=== PATIENT | male | born 1935 | race Caucasian/White ===

== ENCOUNTER → 2018-03-26 08:14 | Outpatient (CLI) | payer MEDICARE, OTHER, SELFPAY ==
--- NOTE | 2018-03-26 | DI.ECHO.S_ITS ---
[facility] +---------+ : : [address] : [place] : : : : [id number] : : : : Phone: [phone]---------+ Echocardiogram Report + + :Name: ARGELIA CUTLER Study Date: 03/26/2018 Height: 70 in : :[facility] Weight: 185 lb: : Gender: Male BSA: 2.0 m2 : :: 1935 Age: 83 yrs BP: 80/20 mmHg: :Reason For Study: SOB : :Ordering Physician: Artur : :Ken Performed By: Maine Mcneil : :Referring: Arabella Garvin : + + Interpretation Summary The patient was in atrial fibrillation with heart rates between 101-118 bpm during the exam. The left ventricle is normal in size. The ejection fraction is estimated to be 25-30%. Left ventricular function has significantly worsened compared to the previous exam. There is moderate to severe global hypokinesis of the left ventricle. The right ventricle is grossly normal size. Right ventricular systolic function is mildly reduced. There is mild to moderate mitral regurgitation. Compared to the prior echo study, there has been an increase in the severity of mitral regurgitation. The aortic valve is moderately calcified. Leaflet mobility is severely reduced. Severity ratio is 0.25. Aortic cusp separation about 0.6 cm. The peak aortic velocity is 2.6 m/sec. The peak aortic velocity on the previous exam was 1.6 m/sec. The aortic valve mean gradient is 15 mmHg. The calculated aortic valve area is 1.0 cm2. Some of the diminished mobility likely due to low cardiac output. There is mild tricuspid regurgitation. Compared to the prior echo exam, there has been an increase in TR severity. Right ventricular systolic pressure is estimated to be 29 mmHg plus the clinically estimated CVP which cannot be estimated on this exam. Procedure: A two-dimensional transthoracic echocardiogram with color flow and Doppler was performed. The study quality was technically difficult. Comparison is made with the echocardiogram of 03-27-15. A contrast injection of Definity was performed to improve assessment of LV function. The patient was in atrial fibrillation with heart rates between 101-118 bpm during the exam. Left Ventricle: The left ventricle is normal in size. There is normal left ventricular wall thickness. There is no thrombus. The ejection fraction is estimated to be 25-30%. Left ventricular function has significantly worsened compared to the previous exam. There is moderate to severe global hypokinesis of the left ventricle. Diastolic function could not be accurately assessed due to atrial fibrillation. Right Ventricle: The right ventricle is grossly normal size. Right ventricular systolic function is mildly reduced. Atria: The left atrium is severely dilated. The left atrium has significantly increased in size since the prior echo exam. The right atrium is mildly dilated. PFO was noted on prior exams, but no shunt was identified during today's echocardiogram. Mitral Valve: The mitral valve leaflets appear mildly thickened, but open well. There is mild mitral annular calcification. The mitral valve chordae are thickened and/or calcified. There is mild to moderate mitral regurgitation. Compared to the prior echo study, there has been an increase in the severity of mitral regurgitation. Aortic Valve: The aortic valve is trileaflet. The aortic valve is moderately calcified. Leaflet mobility is severely reduced. The calculated aortic valve area is 1.0 cm2. The peak aortic velocity is 2.6 m/sec. The peak aortic velocity on the previous exam was 1.6 m/sec. The aortic valve mean gradient is 15 mmHg. Severity ratio is 0.25. Aortic cusp separation about 0.6 cm. No aortic regurgitation is present. Tricuspid Valve: The tricuspid valve leaflets are thin and pliable. There is mild tricuspid regurgitation. Right ventricular systolic pressure is estimated to be 29 mmHg plus the clinically estimated CVP which cannot be estimated on this exam. Compared to the prior echo exam, there has been an increase in TR severity. Pulmonic Valve: The pulmonic valve is not well visualized. Great Vessels: The aortic root is normal size. There is aortic root sclerosis/calcification. The dimensions of the ascending aorta are normal. The inferior vena cava was not visualized. Pericardium/ Pleura There is no pericardial effusion. There is no pleural effusion. MMode/2D Measurements & Calculations LVIDd: 5.5 cm LVOT diam: 2.3 cm LVIDs: 4.6 cm Ao root diam: 3.4 cm FS: 16.4 % Aortic Jxn: 2.6 cm EPSS: 1.7 cm asc Aorta Diam: 3.5 cm IVSd: 1.3 cm Ao Arch Diam (Prox Trans): 2.9 cm LVPWd: 0.94 cm LV cage. diameter/BSA (cm/m^2): 2.7 LV sys. diameter/BSA (cm/m^2): 2.3 LA dimension: 5.9 cm RA long axis: 6.0 cm LA A2 area: 37.3 cm2 RA area: 22.3 cm2 LA A4 area: 30.3 cm2 RA vol: 69.8 ml LA length (vol): 6.2 cm RA : 34.6 ml/m2 LA vol: 154.5 ml RVDd major: 5.8 cm LA vol index: 76.5 ml/m2 RVD1 (basal): 3.4 cm RVD2 (mid): 3.1 cm AMMON (plan): 0.53 cm2 Doppler Measurements & Calculations Ao V2 max: 258.3 cm/sec LVOT Max Jurgen: 60.8 cm/sec Ao V2 mean: 178.0 cm/sec LV V1 max P.5 mmHg Ao max P.7 mmHg LV V1 VTI: 13.2 cm Ao mean P.8 mmHg AMMON(I,D): 1.1 cm2 Ao V2 VTI: 52.3 cm AMMON(V,D): 1.00 cm2 sev ratio: 0.25 AMMON indexed to BSA (cm^2/m^2): 0.53 MV P1/2t: 69.3 msec TR max jurgen: 270.0 cm/sec MVA(VTI): 2.7 cm2 TR max P.1 mmHg PA V2 max: 72.8 cm/sec PA V2 mean: 44.9 cm/sec PA mean P.96 mmHg PA Accel Time: 0.11 sec MV V2 mean: 51.6 cm/sec MV P1/2t max jurgen: 112.9 cm/sec MV mean P.5 mmHg MVA(P1/2t): 3.2 cm2 MV V2 VTI: 20.9 cm MR flow rate: 52.4 cm3/sec MR PISA radius: 0.47 cm Reading Physician:UZAIR
== END ==
PROVIDERS: Family Provider Specialist; PCP Family Medicine; Visit Provider Internal Medicine Cardiovascular Disease
DX: I08.1 Rheumatic disorders of both mitral and tricuspid valves (principal); R06.02 Shortness of breath
CPT/HCPCS: 93306; Q9957

== ENCOUNTER → 2018-04-09 14:21 | Outpatient (CLI) | payer MEDICARE, OTHER, SELFPAY ==
--- NOTE | 2018-04-12 16:45 | PM.PFT.1 ---
Pulmonary Function Test Referral & Results Date Patient Seen: 04/09/18 Requesting provider: Artur Rogers Indication: Amiodarone therapy Results: The spirometry demonstrates an FVC of 1.81 L which is 40% of predicted. The FEV1 was measured at 1.26 L which is 40% of predicted. The FEV1/FVC ratio was 69 which is 97% of predicted. Following the administration of bronchodilator there was no appreciable change. Lung volumes show an SVC of 1.92 L which is 45% of predicted. The diffusing capacity was measured at 13.33 which is 43% of predicted. No hemoglobin value was provided, so no correction for potential anemia could be made, if appropriate. The maximum voluntary ventilation was reduced Interpretation: This study demonstrates moderately severe obstructive lung disease without evidence of benefit following bronchodilator There is also moderately severe restrictive lung disease present Was also moderately severe reduction in diffusing capacity suggesting significant disease at the capillary alveolar level. This is consistent with a diagnosis of COPD Clinical correlation suggested
== END ==
PROVIDERS: Visit Provider Internal Medicine Cardiovascular Disease
DX: R06.02 Shortness of breath (principal); Z79.899 Other long term (current) drug therapy
CPT/HCPCS: 94010; 94060; 94726; 94729

== ENCOUNTER → 2018-06-18 12:27 | Outpatient (CLI) | payer MEDICARE, OTHER, SELFPAY ==
--- NOTE | 2018-06-18 12:29 | DI.RAD.S_ITS ---
PROCEDURE: XR TIBIA FIBULA RT 2V INDICATIONS: Left knee and calf pain TECHNIQUE: 2 views of the tibia and fibula were acquired. COMPARISON: [facility], CR, TIB/FIB 2V RIGHT, 05/05/2010, 19:47. FINDINGS: Bones: Cortical irregularity involving proximal to mid fibular shaft is seen suggestive of subacute to old healed fibular shaft fracture. No gross acute fracture or dislocation is seen. [id number] ankle and knee joint osteoarthritis is seen. Soft tissues: Vascular calcifications are noted in posterior aspect of left knee. IMPRESSION: Suggestion of subacute to old fibular shaft fracture. No acute fracture or dislocation. Ankle and left knee joint osteoarthritis. Dictated by: Gareth Rodas M.D. on 06/18/2018 at 14:13 Approved by: Gareth Rodas M.D. on 06/18/2018 at 14:18
--- NOTE | 2018-06-18 12:29 | DI.RAD.S_ITS ---
PROCEDURE: XR KNEE LT 3V INDICATIONS: Left knee and calf pain TECHNIQUE: 3 views of the knee were acquired. COMPARISON: None. FINDINGS: Bones: [id number] tricompartment osteoarthritis is noted. No acute fractures or dislocations. Subacute to chronic appearing deformity involving proximal left fibular shaft is seen. No suspicious bony lesions. Soft tissues: Small to moderate suprapatellar joint effusion is seen.. Vascular calcification is noted in posterior left knee. IMPRESSION: Small to moderate amount of joint effusion. Other moderate tricompartment osteoarthritis. No gross acute fracture or dislocation. Suggestion of subacute to chronic proximal to mid fibular shaft fracture. Dictated by: Gareth Rodas M.D. on 06/18/2018 at 14:18 Approved by: Gareth Rdoas M.D. on 06/18/2018 at 14:19
== END ==
PROVIDERS: Family Provider Specialist; PCP Family Medicine; Visit Provider Physician Assistant
DX: M25.562 Pain in left knee (principal); M79.662 Pain in left lower leg; M19.072 Primary osteoarthritis, left ankle and foot; M17.12 Unilateral primary osteoarthritis, left knee; M25.462 Effusion, left knee
CPT/HCPCS: 73562; 73590

== ENCOUNTER → 2018-07-14 08:33 | Outpatient (CLI) | payer MEDICARE, OTHER, SELFPAY ==
[2018-07-14 09:30] LABS: Hemoglobin A1C% w Est Avg Glu 6.2 % (4.0-6.0)
[2018-07-14 09:38] LABS: Cholesterol 127 mg/dL (140-199); HDL Cholesterol 32 mg/dL (40-60); LDL Cholesterol Calculated 74 mg/dL (<100); Triglycerides 103 mg/dL (35-150)
== END ==
PROVIDERS: Family Provider Specialist; PCP Family Medicine; Visit Provider Family Medicine
DX: E11.29 Type 2 diabetes mellitus with other diabetic kidney complication (principal); E78.5 Hyperlipidemia, unspecified; I95.9 Hypotension, unspecified
CPT/HCPCS: 80061; 83036

== ENCOUNTER → 2018-09-06 12:44 | Outpatient (CLI) | payer MEDICARE, OTHER, SELFPAY ==
--- NOTE | 2018-09-10 15:47 | PM.PFT.1 ---
Pulmonary Function Test Referral & Results Date Patient Seen: 09/06/18 Requesting provider: Artur Rogers Indication: Dyspnea shortness of breath Results: The spirometry demonstrates an FVC of 1.69 L which is 45% of predicted. The FEV1 was measured at 1.15 L which is 44% of predicted. The FEV1/FVC ratio was 68 which is 95% of predicted. Following the administration of bronchodilator there was no appreciable change. Lung volumes show an SVC of 1.74 L which is 41% of predicted. The diffusing capacity was measured at 13.11 which is 42% of predicted. No hemoglobin value was provided, so no correction for potential anemia could be made, if appropriate. The maximum voluntary ventilation was reduced Interpretation: This study demonstrates severe obstructive lung disease based on significant reduction in FEV1. There is no evidence of benefit following bronchodilator There is also severe restrictive lung disease present based on reduction SVC There is also a severe reduction in diffusing capacity suggesting significant disease at the capillary alveolar level. Compared to PFTs performed in March 2018, current study is essentially unchanged. There might be slight decline in FEV1.
== END ==
PROVIDERS: Family Provider Specialist; PCP Family Medicine; Visit Provider Internal Medicine Cardiovascular Disease
DX: R06.02 Shortness of breath (principal); Z79.899 Other long term (current) drug therapy
CPT/HCPCS: 94060; 94726; 94729

== ENCOUNTER 2018-12-15 12:43 | Emergency (ER) | payer MEDICARE, OTHER, SELFPAY ==
[2018-12-15 13:13] LABS: Add Manual Diff / Slide Review NO; Basophils Absolute Auto 100 /uL (0-100); Basophils Percent Auto 0.7 % (0-2); Eosinophils Absolute Auto 200 /uL (0-450); Eosinophils Percent Auto 1.8 % (2-4); Hemoglobin 14.4 g/dL (13.5-17.5); Lymphocytes Absolute Auto 1600 /uL (1100-4500); Lymphocytes Percent Auto 18.1 % (25-40); Mean Corpuscular HGB Conc 32.1 % (30-36); Mean Corpuscular Hemoglobin 30.3 PG (26-34); Mean Corpuscular Volume 94.5 fL (80-100); Monocytes Absolute Auto 600 /uL (0-900); Monocytes Percent Auto 7.2 % (3-14); Neutrophils Absolute Auto 6400 /uL (1500-7000); Neutrophils Percent Auto 72.2 % (50-75); Platelet Count 162 X10^3/uL (150-400); Red Blood Cell Count 4.77 X10^6/uL (4.5-5.9); Red Cell Distribution Width 16.3 % (11.6-14.8); White Blood Cell Count 8.8 X10^3/uL (4.5-11.0)
[2018-12-15 13:19] LABS: INR 2.6 (0.9-1.3); Prothrombin Time 30.9 SECONDS (10.1-12.7)
--- NOTE | 2018-12-15 13:19 | DI.CT.S_ITS ---
PROCEDURE: CT HEAD/BRAIN WO CON INDICATIONS: fall on coumadin TECHNIQUE: Noncontrast 4.5 mm thick angled axial sections acquired from the foramen magnum to the vertex, with coronal and sagittal reformats. For radiation dose reduction, the following was used: automated exposure control, adjustment of mA and/or kV according to patient size. COMPARISON: None. FINDINGS: Image quality: Excellent. CSF spaces: Basal cisterns are patent. No extra-axial fluid collections. The ventricles are symmetric in size and shape. Brain: No intracranial bleeds or masses. There is mild cerebral volume loss for age, with resultant ventricular and sulcal prominence. There are mild periventricular and deep white matter chronic small vessel ischemic changes. There is intracranial internal carotid artery atherosclerosis. Skull and face: Calvarium and visualized facial bones appear intact, without suspicious lesions. Sinuses: There is a large mucous retention cyst or polyp in the right frontal sinus. The mastoids are clear. IMPRESSION: 1. No acute intracranial abnormalities. No intracranial bleed. 2. Cerebral volume loss and chronic microvascular ischemic changes. 3. A large mucous retention cyst or polyp in the right frontal sinus. Dictated by: Tin Arellano M.D. on 12/15/2018 at 13:39 Approved by: Tin Arellano M.D. on 12/15/2018 at 13:42
[2018-12-15] MEDS: SODIUM CHLORIDE 0.9% 1,000 ML 150 ML IV (13:21)
[2018-12-15 13:22] LABS: PTT Partial Thromboplastin Tim 41 SECONDS (26.4-36.2)
[2018-12-15 13:25] LABS: Alanine Aminotransferase 9 IU/L (21-72); Albumin 4.4 g/dL (3.5-5.0); Albumin Globulin Ratio 1.4 (1.0-2.8); Alkaline Phosphatase 78 U/L (38-126); Aspartate Aminotransferase 26 IU/L (17-59); BUN Creatinine Ratio 6.8 (6-22); Bilirubin Total 0.8 mg/dL (0.2-1.3); Blood Urea Nitrogen 42 mg/dL (9-20); Calcium 9.3 mg/dL (8.4-10.2); Carbon Dioxide 24 mmol/L (22-32); Chloride 99 mmol/L (98-107); Creatine Kinase 51 U/L (55-170); Estimated Glomerular Filt Rate 8.7 mL/min (>60); Globulin 3.1 g/dL (1.7-4.1); Glucose 156 mg/dL (80-110); HEMOLYSIS 35 (0-50); Potassium 4.7 mmol/L (3.4-5.1); Sodium 142 mmol/L (137-145); Total Protein 7.5 g/dL (6.3-8.2)
[2018-12-15 13:26] VITALS: BP 100/72; PULSE 113; RESP 28; O2SAT 96
[2018-12-15 13:37] LABS: Troponin I < 0.012 ng/mL (0.01-0.034)
--- NOTE | 2018-12-15 13:44 | ED_ITS ---
HPI - Trauma General Chief Complaint: Trauma Stated Complaint: snycope Time Seen by Provider: 12/15/18 12:50 Source: patient and EMS Mode of arrival: EMS Limitations: no limitations History of Present Illness HPI narrative: Patient is a 83-year-old male on dialysis with atrial fibrillation on Coumadin presenting with syncopal episode a ground level fall. He states he has been getting all lightheaded says his blood pressure has been to low he stopped all of his blood pressure medications, due to how he was feeli ng. did not guide him through stopping his medications. He was lightheaded and dizzy today and he fell backwards hitting his head today no loss of consciousness. No neck pain no other injury except for right hand skin tear. He has no hip or pelvis pain. No nausea he still feels a little dizzy and lightheaded. He is followed by Dr. Goyal nephrology, he has not missed dialysis in fact he had yesterday and is due again tomorrow. MD complaint: fall Related Data Home Medications Medication Instructions Recorded Confirmed cholecalciferol (vitamin D3) 2,000 unit PO DAILY #0 11/15/10 12/15/18 [Vitamin D3] aspirin 81 mg tablet,delayed 81 mg PO DAILY 09/13/18 12/15/18 release insulin aspart U- 100 100 unit/mL See Rx Instructions SUBCUT SLIDE 09/13/18 12/15/18 subcutaneous solution day vitamin B complex tablet 1 tab PO DAILY 09/13/18 12/15/18 Alcohol Prep Pads 1 pad TOPICAL DIRECTED 12/15/18 12/15/18 B complex-vitamin C-folic acid 1 tab PO DAILY 12/15/18 12/15/18 [Pita-Rene] Harrison 1 ea MISCELLANEOUS DIRECTED 12/15/18 12/15/18 Prevalite 4 gm PO Q6HP PRN 12/15/18 12/15/18 Pita-Rene 1 tab PO DAILY 12/15/18 12/15/18 atorvastatin [Lipitor] 40 mg PO BEDTIME 12/15/18 12/15/18 colchicine 0.6 mg PO BID PRN 12/15/18 12/15/18 levothyroxine 224 mcg PO DAILY 12/15/18 12/15/18 nitroglycerin [Nitrostat] 0.4 mg SUBLINGUAL SEE INSTRUCTIONS 12/15/18 12/15/18 PRN omeprazole 20 mg PO DAILY 12/15/18 12/15/18 Previous Rx's Medication Instructions Recorded calcium acetate 2 tab PO WITH MEALS #180 tab 04/14/16 Lantus U-100 Insulin 8 unit SQ QPM #3 vial 04/23/16 clotrimazole-betamethasone 1 caitlyn TOPICAL BID #30 gm 06/23/17 [Lotrisone] [LANCETS] #100 each 05/31/18 warfarin 4 mg tablet 4 mg PO DAILY #90 tab 09/15/18 Allergies Allergy/AdvReac Type Severity Reaction Status Date / Time procaine [PROCAINE] Allergy Severe shock Verified 09/13/18 12:02 grass pollen-perennial rye, Allergy Intermediate ITCHY Verified 09/13/18 12:02 standar EYES/SNEEZE [GRASS POLL-PERENNIAL RYE,STD] Iodine and Iodide Containing Allergy Intermediate VOMITING Verified 09/13/18 12:02 Produc AND SHOCK [IODINE AND IODIDE CONTAINING PRODUC] lidocaine [LIDOCAINE] Allergy Intermediate HYPOTENSIVE Verified 09/13/18 12:02 trandolapril [TRANDOLAPRIL] Allergy Intermediate COUGH Verified 09/13/18 12:02 novacaine Allergy Unknown Uncoded 06/18/18 13:21 seafoood Allergy Unknown VOMITING Uncoded 06/18/18 13:21 AND SHOCK Review of Systems Review of Systems ROS Unobtainable: All systems reviewed & are unremarkable except as noted in HPI and below Constitutional Denies chills, Denies fever(s), Denies lethargy and Denies weakness Eyes Denies change in vision, Denies eye discharge, Denies irritation and Denies loss of vision ENT Ears, Nose, Mouth, and Throat: Denies change in voice, Denies neck pain and Denies sore throat Cardiovascular Denies chest pain, Reports syncope, Reports irregular heart rhythm (atrial fibrillation), Reports lightheadedness, Denies dyspnea and Denies dyspnea on exertion Respiratory Denies cough, Denies dyspnea, Denies dyspnea on exertion and Denies wheezing Gastrointestinal Gastrointestinal: Denies abdominal pain, Denies change in bowel habits, Denies diarrhea, Denies nausea and Denies vomiting Genitourinary Denies hematuria, Denies flank pain, Denies urinary incontinence and Denies uri nary urgency Musculoskeletal Denies neck pain Integumentary/Breasts Denies pruritus, Denies erythema, Denies rash and Denies wounds Neurologic Reports syncope, Denies loss of vision and Denies weakness Allergic/Immunologic Denies wheezing [facility] Medical History Anemia (Chronic Unknown) Atrial fibrillation (Chronic Unknown) BPH (benign prostatic hyperplasia) (Chronic Unknown) Carotid artery disease (Chronic Unknown) Diabetes (Chronic Unknown) Elevated PSA (Chronic Unknown) GERD (gastroesophageal reflux disease) (Chronic Unknown) Gout (Chronic Unknown) Hearing loss (Chronic Unknown) Hyperlipemia (Chronic Unknown) Hypertension (Chronic Unknown) Hypothyroidism (Chronic Unknown) Kidney disease (Chronic Unknown) Sleep apnea (Chronic Unknown) Cataracts, bilateral (Resolved Unknown) Myocardial infarction (Resolved Unknown) Surgical History History of carpal tunnel repair History of cataract removal with insertion of prosthetic lens Status post biopsy Status post hernia repair Family History (System 04/13/18 @ 11:51 by Lidia Raymundo) Mother Hypertension Father Emphysema of lung Social History (System 04/13/18 @ 11:51 by Lidia Raymundo) Smoking Status: Former smoker Tobacco: How many years used: 12 second hand exposure: No alcohol intake: never substance use type: does not use Family History Mother Hypertension Father Emphysema of lung Social History Smoking Status: Former smoker Tobacco: How many years used: 12 second hand exposure: No alcohol intake: never substance use type: does not use Exam Initial Vital Signs Initial Vital Signs: Vital Signs Pulse Rate 113 H 12/15/18 13:26 Respiratory Rate 28 H 12/15/18 13:26 Blood Pressure 100/72 12/15/18 13:26 Pulse Oximetry 96 12/15/18 13:26 GENERAL: Alert pleasant well-appearing elderly male and in [no acute] distress. HEENT: Head atraumatic, no abrasion no crepitation no depression,EOMI, pupils reactive, face symmetric, [moist] mucous membranes NECK: Supple no vertebral tenderness no step-off CARDIOVASCULAR: Regular rate and rhythm without murmurs, rubs or gallops. RESPIRATORY: Breath sounds equal bilaterally, no wheezes rales or rhonchi. ABDOMEN: Soft, nontender. Normoactive bowel sounds all 4 quadrants. No guarding or rebound. EXTREMITIES: Normal range of motion, no clubbing or edema. Neurovascularly intact. Pelvis stable NEUROLOGICAL: Alert and oriented x4.Normal gait and speech. Cranial nerves II through XII grossly intact. [employer] strength equal bilaterally able lift both legs up off the gurney and having them drift SKIN: Skin tear noted between thumb and index finger on right hand. No other signs of injury. Course Orders Ordered: ED Orders 12/15/18 12:51 EKG-12 Lead Stat 12/15/18 13:00 Complete Blood Count AUTO DIFF Stat Comprehensive Metabolic Panel Stat Partial Thromboplastin Time Stat Prothrombin Time INR Stat Troponin & CK Cardiac Panel Stat 12/15/18 13:19 CT head/brain wo con Stat 12/15/18 14:26 XR chest 1V Stat Discontinued Medications Digoxin (Lanoxin) 250 mcg IV NOW ONE Stop: 12/15/18 14:45 Last Admin: 12/15/18 15:30 Dose: 250 mcg Sodium Chloride (Normal Saline 0.9%) 1,000 mls @ 150 mls/hr IV CONT ARAVIND Last Admin: 12/15/18 13:21 Dose: 150 mls/hr Vital Signs - 8 hr 12/15/18 13:26 12/15/18 14:30 12/15/18 15:30 Pulse Rate 113 H 123 H 137 H Respiratory Rate 28 H 25 H Blood Pressure 123/83 Blood Pressure [Right Arm] 100/72 97/56 L Pulse Oximetry 96 93 12/15/18 15:37 Pulse Rate 117 H Respiratory Rate Blood Pressure Blood Pressure [Right Arm] 123/83 Pulse Oximetry 95 MDM - Trauma Lab Data Attestation: I reviewed the patient's lab results. Result diagrams: 12/15/18 13:00 12/15/18 13:00 Lab Results 12/15/18 12/15/18 12/15/18 Range/Units 13:00 13:00 13:00 WBC 8.8 (4.5-11.0) X10^3/uL RBC 4.77 (4.5-5.9) X10^6/uL Hgb 14.4 (13.5-17.5) g/dL Hct 45.0 (41-53) % MCV 94.5 (80-100) fL MCH 30.3 (26-34) PG MCHC 32.1 (30-36) % RDW 16.3 H (11.6-14.8) % Plt Count 162 (150-400) X10^3/uL Neut % (Auto) 72.2 (50-75) % Lymph % (Auto) 18.1 L (25-40) % [place] % (Auto) 7.2 (3-14) % Eos % (Auto) 1.8 L (2-4) % Baso % (Auto) 0.7 (0-2) % Neut # (Auto) 6400 (0112-3113) /uL Lymph # (Auto) 1600 (2437-5424) /uL [place] # (Auto) 600 (0-900) /uL Eos # (Auto) 200 (0-450) /uL Baso # (Auto) 100 (0-100) /uL PT 30.9 H (10.1-12.7) SECONDS INR 2.6 H (0.9-1.3) APTT 41 H (26.4-36.2) SECONDS Sodium 142 (137-145) mmol/L Potassium 4.7 (3.4-5.1) mmol/L Chloride 99 (98-107) mmol/L Carbon Dioxide 24 (22-32) mmol/L BUN 42 H (9-20) mg/dL Creatinine 6.20 H (0.66-1.25) mg/dL Estimated GFR 8.7 L (>60) mL/min BUN/Creatinine Ratio 6.8 (6-22) Glucose 156 H (80-110) mg/dL Calcium 9.3 (8.4-10.2) mg/dL Total Bilirubin 0.8 (0.2-1.3) mg/dL AST 26 (17-59) IU/L ALT 9 L (21-72) IU/L Alkaline Phosphatase 78 (38-126) U/L Total Creatine Kinase 51 L (55-170) U/L CK-MB (CK-2) TNP CK-MB (CK-2) Rel Index TNP Troponin I < 0.012 (0.01-0.034) ng/mL Total Protein 7.5 (6.3-8.2) g/dL Albumin 4.4 (3.5-5.0) g/dL Globulin 3.1 (1.7-4.1) g/dL Albumin/Globulin Ratio 1.4 (1.0-2.8) Point of Care Testing Glucose POC 183 Imaging Data Chest x-ray: Radiologist's impression: PROCEDURE: XR CHEST 1V INDICATIONS: syncope. TECHNIQUE: One view of the chest was acquired. COMPARISON: [facility], CHEST 1 VIEW, 12/19/2015, 8:26. [facility], CHEST 1 VIEW, 12/20/2015, 14:21. [facility], CHEST 1 VIEW, 01/18/2016, 10:24. FINDINGS: Surgical changes and devices: None. Lungs and pleura: Lung volumes are small, likely secondary to shallow inspiration. Lungs are clear. No pleural effusions or pneumothorax. Mediastinum: Mediastinal contours appear normal. Heart size is normal. Bones and chest wall: No suspicious bony lesions. Overlying soft tissues appear unremarkable. IMPRESSION: No acute cardiopulmonary disease. Dictated by: Tin Arellano M.D. on 12/15/2018 at 15:02 CT scan - head: Radiologist's impression: PROCEDURE: CT HEAD/BRAIN WO CON INDICATIONS: fall on coumadin TECHNIQUE: Noncontrast 4.5 mm thick angled axial sections acquired from the foramen magnum to the vertex, with coronal and sagittal reformats. For radiation dose reduction, the following was used: automated exposure control, adjustment of mA and/or kV according to patient size. COMPARISON: None. FINDINGS: Image quality: Excellent. CSF spaces: Basal cisterns are patent. No extra-axial fluid collections. The ventricles are symmetric in size and shape. Brain: No intracranial bleeds or masses. There is mild cerebral volume loss for age, with resultant ventricular and sulcal prominence. There are mild periventric ular and deep white matter chronic small vessel ischemic changes. There is intracranial internal carotid artery atherosclerosis. Skull and face: Calvarium and visualized facial bones appear intact, without suspicious lesions. Sinuses: There is a large mucous retention cyst or polyp in the right frontal sinus. The mastoids are clear. IMPRESSION: 1. No acute intracranial abnormalities. No intracranial bleed. 2. Cerebral volume loss and chronic microvascular ischemic changes. 3. A large mucous retention cyst or polyp in the right frontal sinus. Dictated by: Tin Arellano M.D. on 12/15/2018 at 13:39 Approved by: Tin Arellano M.D. on 12/15/2018 at 13:42 ECG Data Attestation: I personally reviewed and interpreted this ECG as follows: Prior ECG tracings: not available for review Interpretation: Atrial fibrillation rate [address] changes or new right bundle branch block MDM Narrative Medical decision making narrative: Patient blood pressure remains low in the 90s to 100s. AFib RVR anywhere from rate 110-130. Patient continues to feel lightheaded. He is followed by Dr. Goyal. The patient needs to be admitted and have blood pressure and heart rate control to help with his pre syncopal episodes. I spoke with , at [facility] who happily except patient. Recommend digoxin for rate control Patient agrees to go to [facility] although it is not his hospital of choice. His daughter brought his CPAP machine to him. Discharge Plan Departure Patient Disposition: [facility] Clinical Impression: Atrial fibrillation Qualifiers: Atrial fibrillation type: chronic Qualified Code(s): I48.2 - Chronic atrial fibrillation Hypotension Qualifiers: Hypotension type: hemodialysis-associated hypotension Qualified Code(s): I95.3 - Hypotension of hemodialysis Discharge Date/Time: 12/15/18 15:55 Interventions: ED Discharge Assessment Last Done: 12/15/18 16:07 Prescriptions: No Action Novolog U-100 Insulin aspart 100 unit/mL solution See Patient Comments subcut SLIDE RF: 0 aspirin [Adult Low Dose Aspirin] 81 mg tablet,delayed release (DR/EC) 81 mg PO DAILY RF: 0 vitamin B complex [B Complex-Vitamin B12] tablet 1 tab PO DAILY RF: 0 cholecalciferol (vitamin D3) [Vitamin D3] 2,000 unit Capsule 2,000 unit PO DAILY Qty: 0 RF: 0 calcium acetate 667 MG capsule 2 tab PO WITH MEALS Qty: 180 RF: 3 Lantus U-100 Insulin 100 UNIT/1 ML solution 8 unit SQ QPM Qty: 3 RF: 3 clotrimazole-betamethasone [Lotrisone] 15 GM cream 1 caitlyn Topical BID Qty: 30 RF: 0 [LANCETS] .Route .MEDSUPPLY Qty: 100 RF: 3 warfarin [Coumadin] 4 mg tablet 4 mg PO DAILY Qty: 90 RF: 1 Alcohol Prep Pads 1 pad topical DIRECTED RF: 0 atorvastatin [Lipitor] 40 MG tablet 40 mg PO BEDTIME RF: 0 Pita-Rene 0.8 mg Tablet 1 tab PO DAILY RF: 0 levothyroxine 112 mcg Tablet 224 mcg PO DAILY RF: 0 Pita-Rene 1 tab PO DAILY RF: 0 nitroglycerin [Nitrostat] 0.4 MG tablet, sublingual 0.4 mg Sublingual SEE INSTRUCTIONS PRN (Reason: Chest Pain) RF: 0 omeprazole 20 MG capsule,delayed release(DR/EC) 20 mg PO DAILY RF: 0 Prevalite 4 GM powder in packet 4 gm PO Q6HP PRN (Reason: Diarrhea) RF: 0 colchicine 0.6 MG capsule 0.6 mg PO BID PRN (Reason: Gout) RF: 0 Harrison 1 ea miscellaneous DIRECTED RF: 0 Referrals: Arabella Garvin DO [Primary Care Provider] -
--- NOTE | 2018-12-15 13:53 | PC.NURSE ---
right hand skin tear cleaned with soap and water, Bactrian applied and band aid. bleeding controlled. right inner thigh abrasion cleaned with soap and water, bacitracian applied and band aid applied. no bleeding at this time.
--- NOTE | 2018-12-15 14:26 | DI.RAD.S_ITS ---
PROCEDURE: XR CHEST 1V INDICATIONS: syncope. TECHNIQUE: One view of the chest was acquired. COMPARISON: [facility], , CHEST 1 VIEW, 12/19/2015, 8:26. [facility], , CHEST 1 VIEW, 12/20/2015, 14:21. [facility], , CHEST 1 VIEW, 01/18/2016, 10:24. FINDINGS: Surgical changes and devices: None. Lungs and pleura: Lung volumes are small, likely secondary to shallow inspiration. Lungs are clear. No pleural effusions or pneumothorax. Mediastinum: Mediastinal contours appear normal. Heart size is normal. Bones and chest wall: No suspicious bony lesions. Overlying soft tissues appear unremarkable. IMPRESSION: No acute cardiopulmonary disease. Dictated by: Tin Arellano M.D. on 12/15/2018 at 15:02 Approved by: Tin Arellano M.D. on 12/15/2018 at 15:03
[2018-12-15 14:30] VITALS: BP 97/56; PULSE 123; RESP 25; O2SAT 93
[2018-12-15 15:30] VITALS: BP 123/83; PULSE 137
[2018-12-15] MEDS: DIGOXIN 500 MCG/2 ML AMPUL 250 MCG IV (15:30)
[2018-12-15 15:37] VITALS: BP 123/83; PULSE 117; O2SAT 95
--- NOTE | 2019-01-25 10:42 | PC.NURSE ---
Per Nakia OCONNELL, IV NS completed on 12/15/2018 at 1607 with 750mL infused
== END 2018-12-15 15:55 | disposition short-term general hospital (02) ==
PROVIDERS: Emergency Provider Emergency Medicine; Family Provider Specialist; PCP Family Medicine; Referring Provider Internal Medicine Cardiovascular Disease
DX: I48.2 Chronic atrial fibrillation (principal); I95.3 Hypotension of hemodialysis; S09.90XA Unspecified injury of head, initial encounter; W18.30XA Fall on same level, unspecified, initial encounter; Z79.01 Long term (current) use of anticoagulants
CPT/HCPCS: 36591; 70450; 71045; 80053; 82550; 82962; 84484; 85025; 85610; 85730; 93005; 96361; 96374; 99283; 99285; J1160

== ENCOUNTER 2019-01-16 18:09 | Emergency (ER) | payer MEDICARE, OTHER, SELFPAY ==
[2019-01-16 18:12] VITALS: BP 107/72; PULSE 108; RESP 18; TEMP 36.6; O2SAT 95; BMI 26.2
--- NOTE | 2019-01-16 18:13 | DI.RAD.S_ITS ---
PROCEDURE: XR CHEST 1V INDICATIONS: syncope TECHNIQUE: One view of the chest was acquired. COMPARISON: , , CHEST 1 VIEW, 01/18/2016, 10:24. , , XR CHEST 1V, 12/15/2018, 14:41. FINDINGS: Surgical changes and devices: None. Lungs and pleura: Lung volumes are decreased bilaterally. Streaky bibasilar opacities compatible with atelectasis. No pneumothorax. Diffuse hazy opacities of the costophrenic angles may represent small pleural effusions, larger on the left. Mediastinum: Cardiomediastinal contours are stable. Bones and chest wall: No suspicious bony lesions. Overlying soft tissues appear unremarkable. IMPRESSION: Possible small bilateral pleural effusions with associated atelectasis. Otherwise, no focal consolidations. Dictated by: Erich Mcintosh M.D. on 01/16/2019 at 19:16 Approved by: Erich Mcintosh M.D. on 01/16/2019 at 19:18
--- NOTE | 2019-01-16 18:20 | ED_ITS ---
HPI - Syncope General Chief Complaint: Syncope Stated Complaint: Near Syncope lasted 10 mins, Afib Time Seen by Provider: 01/16/19 18:12 Source: patient, family and EMS Mode of arrival: EMS Limitations: no limitations History of Present Illness HPI narrative: 84-year-old male former smoker with history of diabetes and end- stage kidney disease requiring dialysis Tuesdays, and Saturdays presents by EMS for evaluation of near syncope. Patient was in his normal state of health and felt well this morning. He states he skipped lunch and took his insulin and then felt dizzy, lightheaded and fatigued, like he does when his sugar is low. He drank some orange juice and had a pretty rapid improvement in his symptoms. EMS arrived to find him in his normal state of health with blood sugar and is normal range. Patient has missed no dialysis and denies any dietary indiscretions. He denies any chest pain or shortness of breath. He states he very clearly felt the symptoms coming on and is no stranger to how he felt. He does state that he was taken off Lantus not too long ago and his glycemic control is now largely on a sliding scale, but that he often does not even take as much as is indicated because he drops too low. MD complaint: almost passed out Onset (ago): hour(s) Prodromal symptoms: lightheaded and nausea/vomiting Witnessed: yes - by bystander Current symptoms: back to baseline Treatments prior to arrival: none Related Data Home Medications Medication Instructions Recorded Confirmed cholecalciferol (vitamin D3) 2,000 unit PO DAILY #0 11/15/10 12/29/18 [Vitamin D3] aspirin 81 mg tablet,delayed 81 mg PO DAILY 09/13/18 12/29/18 release insulin aspart U- 100 100 unit/mL See Rx Instructions SUBCUT SLIDE 09/13/18 12/29/18 subcutaneous solution day vitamin B complex tablet 1 tab PO DAILY 09/13/18 12/29/18 Alcohol Prep Pads 1 pad TOPICAL DIRECTED 12/15/18 12/15/18 B complex-vitamin C-folic acid 1 tab PO DAILY 12/15/18 12/29/18 [Pita-Rene] [place] 1 ea MISCELLANEOUS DIRECTED 12/15/18 12/15/18 Prevalite 4 gm PO Q6HP PRN 12/15/18 12/29/18 Pita-Rene 1 tab PO DAILY 12/15/18 12/15/18 atorvastatin [Lipitor] 40 mg PO BEDTIME 12/15/18 12/29/18 levothyroxine 224 mcg PO DAILY 12/15/18 12/29/18 nitroglycerin [Nitrostat] 0.4 mg SUBLINGUAL SEE INSTRUCTIONS 12/15/18 12/29/18 PRN omeprazole 20 mg PO DAILY 12/15/18 12/29/18 Previous Rx's Medication Instructions Recorded calcium acetate 2 tab PO WITH MEALS #180 tab 04/14/16 clotrimazole-betamethasone 1 caitlyn TOPICAL BID #30 gm 06/23/17 [Lotrisone] [LANCETS] #100 each 05/31/18 warfarin 4 mg tablet 4 mg PO DAILY #90 tab 09/15/18 metoprolol tartrate 25 mg tablet 25 mg PO BID #60 tab 01/13/19 Allergies Allergy/AdvReac Type Severity Reaction Status Date / Time procaine [PROCAINE] Allergy Severe shock Verified 01/16/19 18:12 grass pollen-perennial rye, Allergy Intermediate ITCHY Verified 01/16/19 18:12 standar EYES/SNEEZE [GRASS POLL-PERENNIAL RYE,STD] Iodine and Iodide Containing Allergy Intermediate VOMITING Verified 01/16/19 18:12 Produc AND SHOCK [IODINE AND IODIDE CONTAINING PRODUC] lidocaine [LIDOCAINE] Allergy Intermediate HYPOTENSIVE Verified 01/16/19 18:12 trandolapril [TRANDOLAPRIL] Allergy Intermediate COUGH Verified 01/16/19 18:12 novacaine Allergy Unknown Uncoded 01/16/19 18:12 seafoood Allergy Unknown VOMITING Uncoded 01/16/19 18:12 AND SHOCK Review of Systems Constitutional Denies chills, Denies fever(s), Denies lethargy and Denies weakness Eyes Denies change in vision, Denies eye discharge, Denies irritation and Denies loss of vision ENT Ears, Nose, Mouth, and Throat: Denies change in voice, Denies neck pain and Denies sore throat Cardiovascular Denies chest pain, Denies irregular heart rhythm, Denies lightheadedness, Denies palpitations, Denies dyspnea, Denies dyspnea on exertion and Denies orthopnea Respiratory Denies cough, Denies dyspnea, Denies dyspnea on exertion and Denies wheezing Gastrointestinal Gastrointestinal: Denies abdominal pain, Denies change in bowel habits, Denies diarrhea, Denies nausea and Denies vomiting Genitourinary Denies hematuria, Denies flank pain, Denies urinary incontinence and Denies urinary urgency Musculoskeletal Denies neck pain Integumentary/Breasts Denies pruritus, Denies erythema, Denies rash and Denies wounds Neurologic Denies confusion, Denies loss of vision and Denies weakness Psychiatric Denies anxiety, Denies confusion, Denies depression, Denies homicidal ideation and Denies suicidal ideation Endocrine Denies palpitations Hematologic/Lymphatic Denies easy bruising Allergic/Immunologic Denies wheezing PFSH Medical History Anemia (Chronic Unknown) Atrial fibrillation (Chronic Unknown) BPH (benign prostatic hyperplasia) (Chronic Unknown) Carotid artery disease (Chronic Unknown) Diabetes (Chronic Unknown) Elevated PSA (Chronic Unknown) GERD (gastroesophageal reflux disease) (Chronic Unknown) Gout (Chronic Unknown) Hearing loss (Chronic Unknown) Hyperlipemia (Chronic Unknown) Hypertension (Chronic Unknown) Hypothyroidism (Chronic Unknown) Kidney disease (Chronic Unknown) Sleep apnea (Chronic Unknown) Cataracts, bilateral (Resolved Unknown) Myocardial infarction (Resolved Unknown) Surgical History History of carpal tunnel repair History of cataract removal with insertion of prosthetic lens Status post biopsy Status post hernia repair Family History Mother Hypertension Father Emphysema of lung Social History Smoking Status: Former smoker Tobacco: How many years used: 12 second hand exposure: No alcohol intake: never substance use type: does not use Family History Mother Hypertension Father Emphysema of lung Social History Smoking Status: Former smoker Tobacco: How many years used: 12 second hand exposure: No alcohol intake: never substance use type: does not use Exam Initial Vital Signs Initial Vital Signs: Vital Signs Temperature 97.8 F 01/16/19 18:12 Pulse Rate 108 H 01/16/19 18:12 Respiratory Rate 18 01/16/19 18:12 Blood Pressure 107/72 01/16/19 18:12 Pulse Oximetry 95 01/16/19 18:12 Const General: cooperative and well hydrated Nutritional Appearance: obese Orientation: alert, awake, oriented x3 and not confused [facility] Head: normocephalic and atraumatic Ears: external ears normal and TM's normal bilaterally Nose: external nose normal and No nasal discharge Face and sinus: no sinus tenderness and No dry mucous membranes Mouth: oral mucosae normal and moist mucous membranes Teeth and gingiva: dentition normal Throat: tonsils normal and uvula midline Eyes General: appearance normal, both eyes and all related structures Eyelids: eyelids normal Conjunctivae: conjunctivae normal Sclera: sclerae normal Pupils: PERRL EOM: EOM intact bilaterally Neck Neck: normal visual inspection, trachea midline, No lymphadenopathy, No midline deformity and No JVD Lymphatic: No lymphedema Chest Chest: normal inspection of the chest Resp Effort & Inspection: normal respiratory effort, able to speak in complete sentences, no respiratory distress and no use of accessory muscles Auscultation: clear to auscultation bilaterally, no rales, no rhonchi and no wheezes Cardio Rate: regular rate Rhythm: regular rhythm Heart Sounds: no click, no gallops, no murmurs and no rubs Pulses: normal peripheral pulses GI Inspection: non-distended Palpation: soft, no hepatosplenomegaly, No guarding, No pulsatile mass and No tender Auscultation: normal bowel sounds Back/Spine/Pelvis Back: No CVA tenderness Cervical Spine: cervical ROM normal and No pain with cervical ROM Thoracic/Lumbar Spine: thoracic and lumbar spine normal to inspection Skin General: no rashes or lesions noted, No jaundice and No petechiae Neuro General: alert, oriented x3, gait normal and no focal motor deficits Speech: speech normal Extrem General: full ROM, no clubbing, cyanosis or edema, no pedal edema and no calf tenderness Psych Appearance: well kempt Mental Status: mental status grossly normal Attitude: cooperative Thought Content: normal and suicidality Judgment: judgment good Course Orders Ordered: ED Orders 01/16/19 18:45 Lactate (Lactic Acid) Stat Vital Signs - 8 hr 01/16/19 20:03 Pulse Rate 98 H Respiratory Rate 23 Blood Pressure [Right Arm] 103/69 Pulse Oximetry 97 MDM - Syncope Lab Data Result diagrams: 01/16/19 18:18 01/16/19 18:18 Lab Results 01/16/19 01/16/19 01/16/19 Range/Units 18:18 18:18 18:45 WBC 8.3 (4.5-11.0) X10^3/uL RBC 4.53 (4.5-5.9) X10^6/uL Hgb 13.7 (13.5-17.5) g/dL Hct 42.8 (41-53) % MCV 94.6 (80-100) fL MCH 30.4 (26-34) PG MCHC 32.1 (30-36) % RDW 16.8 H (11.6-14.8) % Plt Count 186 (150-400) X10^3/uL Neut % (Auto) 60.4 (50-75) % Lymph % (Auto) 24.3 L (25-40) % [place] % (Auto) 11.5 (3-14) % Eos % (Auto) 2.6 (2-4) % Baso % (Auto) 1.2 (0-2) % Neut # (Auto) 5000 (5695-0994) /uL Lymph # (Auto) 2000 (5696-2653) /uL [place] # (Auto) 1000 H (0-900) /uL Eos # (Auto) 200 (0-450) /uL Baso # (Auto) 100 (0-100) /uL Sodium 141 (137-145) mmol/L Potassium 4.8 (3.4-5.1) mmol/L Chloride 100 (98-107) mmol/L Carbon Dioxide 26 (22-32) mmol/L BUN 42 H (9-20) mg/dL Creatinine 6.30 H (0.66-1.25) mg/dL Estimated GFR 8.5 L (>60) mL/min BUN/Creatinine Ratio 6.7 (6-22) Glucose 149 H (80-110) mg/dL Lactate 1.9 (0.7-2.1) mmol/L Calcium 9.1 (8.4-10.2) mg/dL Magnesium 1.7 (1.6-2.3) mg/dL Total Bilirubin 0.7 (0.2-1.3) mg/dL AST 28 (17-59) IU/L ALT 14 L (21-72) IU/L Alkaline Phosphatase 86 (38-126) U/L Total Creatine Kinase 52 L (55-170) U/L CK-MB (CK-2) TNP CK-MB (CK-2) Rel Index TNP Troponin I < 0.012 (0.01-0.034) ng/mL B-Natriuretic Peptide 1960 H (<100) Total Protein 7.2 (6.3-8.2) g/dL Albumin 4.2 (3.5-5.0) g/dL Globulin 3.0 (1.7-4.1) g/dL Albumin/Globulin Ratio 1.4 (1.0-2.8) Point of Care Testing Glucose POC 145 MDM Narrative Medical decision making narrative: Multiple etiologies for patient's symptoms considered including: [Episode versus tachy arrhythmia versus bradyarrhythmia versus electrolyte abnormality versus other] Patient's symptoms improved or duration of stay with above-stated therapies. Findings and discharge diagnosis discussed with patient/family followed by verbalization of understanding Return precautions discussed with patient/family whom verbalize understanding. Discharge Plan Departure Patient Disposition: Home Clinical Impression: Near syncope, Hypoglycemia Discharge Date/Time: 01/16/19 20:32 Interventions: ED Discharge Assessment Last Done: 01/16/19 20:31 Instructions: DI for Syncope in Adults (Fainting) Activity Restrictions/Additional Instructions: *You have been diagnosed with [near syncope] *What to do: *Take medications as directed *Follow up with your primary care provider in 2-3 days, call for an appointment. Let them know you were seen in the Emergency Department and that we ask that you be seen in follow up *Return to ER if you should have any new, worsening or concerning symptoms, such as [ ] Prescriptions: No Action Novolog U-100 Insulin aspart 100 unit/mL solution See Patient Comments subcut SLIDE RF: 0 aspirin [Adult Low Dose Aspirin] 81 mg tablet,delayed release (DR/EC) 81 mg PO DAILY RF: 0 vitamin B complex [B Complex-Vitamin B12] tablet 1 tab PO DAILY RF: 0 cholecalciferol (vitamin D3) [Vitamin D3] 2,000 unit Capsule 2,000 unit PO DAILY Qty: 0 RF: 0 calcium acetate 667 MG capsule 2 tab PO WITH MEALS Qty: 180 RF: 3 clotrimazole-betamethasone [Lotrisone] 15 GM cream 1 caitlyn Topical BID Qty: 30 RF: 0 [LANCETS] .Route .MEDSUPPLY Qty: 100 RF: 3 warfarin [Coumadin] 4 mg tablet 4 mg PO DAILY Qty: 90 RF: 1 metoprolol tartrate 25 mg tablet 25 mg PO BID Qty: 60 RF: 1 Alcohol Prep Pads 1 pad topical DIRECTED RF: 0 atorvastatin [Lipitor] 40 MG tablet 40 mg PO BEDTIME RF: 0 Pita-Rene 0.8 mg Tablet 1 tab PO DAILY RF: 0 levothyroxine 112 mcg Tablet 224 mcg PO DAILY RF: 0 Pita-Rene 1 tab PO DAILY RF: 0 nitroglycerin [Nitrostat] 0.4 MG tablet, sublingual 0.4 mg Sublingual SEE INSTRUCTIONS PRN (Reason: Chest Pain) RF: 0 omeprazole 20 MG capsule,delayed release(DR/EC) 20 mg PO DAILY RF: 0 Prevalite 4 GM powder in packet 4 gm PO Q6HP PRN (Reason: Diarrhea) RF: 0 [place] 1 ea miscellaneous DIRECTED RF: 0 Referrals: Arabella Garvin DO [Primary Care Provider] -
[2019-01-16 18:29] LABS: Add Manual Diff / Slide Review NO; Basophils Absolute Auto 100 /uL (0-100); Basophils Percent Auto 1.2 % (0-2); Eosinophils Absolute Auto 200 /uL (0-450); Eosinophils Percent Auto 2.6 % (2-4); Hematocrit 42.8 % (41-53); Hemoglobin 13.7 g/dL (13.5-17.5); Lymphocytes Absolute Auto 2000 /uL (1100-4500); Lymphocytes Percent Auto 24.3 % (25-40); Mean Corpuscular HGB Conc 32.1 % (30-36); Mean Corpuscular Hemoglobin 30.4 PG (26-34); Mean Corpuscular Volume 94.6 fL (80-100); Monocytes Absolute Auto 1000 /uL (0-900); Monocytes Percent Auto 11.5 % (3-14); Neutrophils Absolute Auto 5000 /uL (1500-7000); Neutrophils Percent Auto 60.4 % (50-75); Platelet Count 186 X10^3/uL (150-400); Red Blood Cell Count 4.53 X10^6/uL (4.5-5.9); Red Cell Distribution Width 16.8 % (11.6-14.8); White Blood Cell Count 8.3 X10^3/uL (4.5-11.0)
[2019-01-16 18:41] LABS: Alanine Aminotransferase 14 IU/L (21-72); Albumin 4.2 g/dL (3.5-5.0); Albumin Globulin Ratio 1.4 (1.0-2.8); Alkaline Phosphatase 86 U/L (38-126); Aspartate Aminotransferase 28 IU/L (17-59); BUN Creatinine Ratio 6.7 (6-22); Bilirubin Total 0.7 mg/dL (0.2-1.3); Blood Urea Nitrogen 42 mg/dL (9-20); Calcium 9.1 mg/dL (8.4-10.2); Carbon Dioxide 26 mmol/L (22-32); Chloride 100 mmol/L (98-107); Creatine Kinase 52 U/L (55-170); Estimated Glomerular Filt Rate 8.5 mL/min (>60); Glucose 149 mg/dL (80-110); HEMOLYSIS 18 (0-50); Magnesium 1.7 mg/dL (1.6-2.3); Potassium 4.8 mmol/L (3.4-5.1); Sodium 141 mmol/L (137-145); Total Protein 7.2 g/dL (6.3-8.2)
[2019-01-16 18:47] LABS: B Type Natriuretic Peptide 1960 (<100)
[2019-01-16 18:52] LABS: Troponin I < 0.012 ng/mL (0.01-0.034)
[2019-01-16 19:00] LABS: Lactate (Lactic Acid) 1.9 mmol/L (0.7-2.1)
[2019-01-16 19:30] VITALS: BP 108/74; PULSE 104; RESP 27; O2SAT 94
[2019-01-16 20:03] VITALS: BP 103/69; PULSE 98; RESP 23; O2SAT 97
== END 2019-01-16 20:32 | disposition home or self-care (01) ==
PROVIDERS: Emergency Provider Emergency Medicine; Family Provider Specialist; PCP Family Medicine
DX: R55 Syncope and collapse (principal); E16.2 Hypoglycemia, unspecified; N18.6 End stage renal disease; Z99.2 Dependence on renal dialysis
CPT/HCPCS: 36415; 36591; 71045; 80053; 82550; 82962; 83605; 83735; 83880; 84484; 85025; 93005; 93010; 99283; 99285

== ENCOUNTER → 2019-01-19 16:38 | Outpatient (CLI) | payer MEDICARE, OTHER, SELFPAY ==
[2019-01-19 17:45] LABS: Hemoglobin A1C% w Est Avg Glu 6.2 % (4.0-6.0)
== END ==
PROVIDERS: Family Provider Specialist; PCP Family Medicine; Visit Provider Hospitalist
DX: E11.9 Type 2 diabetes mellitus without complications (principal); E16.2 Hypoglycemia, unspecified
CPT/HCPCS: 36415; 83036

== ENCOUNTER → 2019-03-07 15:37 | Outpatient (CLI) | payer MEDICARE, OTHER, SELFPAY | PROVIDERS: Family Provider Specialist; PCP Family Medicine; Visit Provider Physician Assistant | DX: S81.819A Laceration without foreign body, unspecified lower leg, initial encounter (principal) | CPT/HCPCS: 87070; 87075; 87205 ==

== ENCOUNTER 2019-03-11 16:50 | Emergency (ER) | payer MEDICARE, OTHER, SELFPAY ==
[2019-03-11] VITALS (28 sets, daily range): BP systolic 69–89; BP diastolic 46–70; PULSE 86–115; RESP 10–32; TEMP 32–36.2; O2SAT 94–100; BMI 29.4
--- NOTE | 2019-03-11 16:55 | ED.GENADULT ---
HPI - General Adult General Chief complaint: Shortness of Breath/Dyspnea Stated complaint: CHF Exacerbation Time Seen by Provider: 03/11/19 16:53 Source: patient and EMS Mode of arrival: EMS Limitations: no limitations History of Present Illness HPI narrative: 84-year-old male. Is an insulin-dependent diabetic, his end-stage renal disease on dialysis receiving dialysis on Thursday. He stated that he is unsure if he got a full treatment yesterday. He did state that he thinks that he was hypotensive yesterday so the treatment was stopped early. He also has a history of CHF. EMS was called to his house today for respiratory distress. EMS reports that when they got there patient was altered. Was blue in color. Was hypoxic. They placed him on CPAP which did seem to improve his symptoms. Had a very difficult time obtaining IV access so a left IO was placed. Fluids were administered. Patient did seem to be improving upon arrival here to the ER. Related Data Home Medications Medication Instructions Recorded Confirmed cholecalciferol (vitamin D3) 2,000 unit PO DAILY #0 11/15/10 03/11/19 [Vitamin D3] aspirin 81 mg tablet,delayed 81 mg PO DAILY 09/13/18 03/11/19 release insulin aspart U-100 100 unit/mL See Rx Instructions SUBCUT SLIDE 09/13/18 03/11/19 subcutaneous solution day vitamin B complex 1 tab PO DAILY 09/13/18 03/11/19 Alcohol Prep Pads 1 pad TOPICAL DIRECTED 12/15/18 03/11/19 B complex-vitamin C-folic acid 1 tab PO DAILY 12/15/18 03/11/19 [Pita-Rene] [place] 1 ea MISCELLANEOUS DIRECTED 12/15/18 03/11/19 Prevalite 4 gm PO Q6HP PRN 12/15/18 03/11/19 atorvastatin [Lipitor] 40 mg PO BEDTIME 12/15/18 03/11/19 levothyroxine 224 mcg PO DAILY 12/15/18 03/11/19 nitroglycerin [Nitrostat] 0.4 mg SUBLINGUAL SEE INSTRUCTIONS 12/15/18 03/11/19 PRN omeprazole 20 mg PO DAILY 12/15/18 03/11/19 Previous Rx's Medication Instructions Recorded calcium acetate 2 tab PO WITH MEALS #180 tab 04/14/16 clotrimazole-betamethasone 1 caitlyn TOPICAL BID #30 gm 06/23/17 [Lotrisone] [LANCETS] #100 each 05/31/18 warfarin 4 mg tablet 4 mg PO DAILY #90 tab 09/15/18 metoprolol tartrate 25 mg tablet 25 mg PO BID #60 tab 01/13/19 Allergies Allergy/AdvReac Type Severity Reaction Status Date / Time procaine [PROCAINE] Allergy Severe shock Verified 03/09/19 15:09 grass pollen-perennial rye, Allergy Intermediate ITCHY Verified 03/09/19 15:09 standar EYES/SNEEZE [GRASS POLL-PERENNIAL RYE,STD] Iodine and Iodide Containing Allergy Intermediate VOMITING Verified 03/09/19 15:09 Produc AND SHOCK [IODINE AND IODIDE CONTAINING PRODUC] lidocaine [LIDOCAINE] Allergy Intermediate HYPOTENSIVE Verified 03/09/19 15:09 trandolapril [TRANDOLAPRIL] Allergy Intermediate COUGH Verified 03/09/19 15:09 novacaine Allergy Unknown Uncoded 03/09/19 15:09 seafoood Allergy Unknown VOMITING Uncoded 03/09/19 15:09 AND SHOCK Review of Systems Review of Systems Narrative: Upon arrival patient had no complaints. All positive results listed below are reported by EMS Constitutional Constitutional: Denies fever(s) Eyes Eyes: Denies diplopia Cardiovascular Cardiovascular: Denies chest pain and Reports dyspnea Respiratory Respiratory: Reports dyspnea Gastrointestinal Gastrointestinal: Denies abdominal pain, Denies nausea and Denies vomiting Genitourinary Comments: Patient does not produce urine Musculoskeletal Musculoskeletal: Denies back pain, Denies myalgias and Denies arthralgias Integumentary/Breasts Skin/Breast: Denies lesions and Denies rash Neurologic Neurologic: Reports confusion Comments: Altered mental status Psychiatric Psychiatric: Reports confusion Hematologic/Lymphatic Comments: On Coumadin Allergic/Immunologic Allergic/Immunologic: Denies urticaria PENDING SALE TO [facility] Medical History Anemia (Chronic Unknown) Atrial fibrillation (Chronic Unknown) BPH (benign prostatic hyperplasia) (Chronic Unknown) Carotid artery disease (Chronic Unknown) Cataracts, bilateral (Resolved Unknown) Diabetes (Chronic Unknown) Elevated PSA (Chronic Unknown) GERD (gastroesophageal reflux disease) (Chronic Unknown) Gout (Chronic Unknown) Hearing loss (Chronic Unknown) Hyperlipemia (Chronic Unknown) Hypertension (Chronic Unknown) Hypothyroidism (Chronic Unknown) Kidney disease (Chronic Unknown) Myocardial infarction (Resolved Unknown) Sleep apnea (Chronic Unknown) Surgical History History of carpal tunnel repair History of cataract removal with insertion of prosthetic lens Status post biopsy Status post hernia repair Family History Mother Hypertension Father Emphysema of lung Social History Smoking Status: Former smoker Tobacco: How many years used: 12 second hand exposure: No alcohol intake: never substance use type: does not use Family History Mother Hypertension Father Emphysema of lung Social History Smoking Status: Former smoker Tobacco: How many years used: 12 second hand exposure: No alcohol intake: never substance use type: does not use Exam Initial Vital Signs Initial Vital Signs: Vital Signs Temperature 97.2 F L 03/11/19 17:00 Pulse Rate 115 H 03/11/19 17:00 Respiratory Rate 32 H 03/11/19 17:00 Blood Pressure 89/46 L 03/11/19 17:00 Pulse Oximetry 100 03/11/19 17:00 Const General: well developed, well groomed, acute distress and ill appearing Orientation: alert, awake and oriented x3 HENMT Head: normal to inspection and normocephalic Eyes Pupils: PERRL Resp Effort & Inspection: labored, respiratory distress and tachypneic Auscultation: rhonchi Cardio Rate: tachycardic Rhythm: abnormal rhythm Pulses: radial pulses present GI Inspection: non-distended Skin Lesions: no lesions Rashes: no rashes Neuro General: alert, awake and oriented x3 Cognition: normal cognition Sensory Exam: no sensory deficits noted Extrem General: capillary refill normal Other: Dialysis catheter left upper extremity Psych Appearance: grossly normal and well kempt Course Orders Ordered: ED Orders 03/11/19 16:54 XR chest 1V Stat EKG-12 Lead Stat RT Consult Eval and Treat Now 03/11/19 17:09 B Type Natriuretic Peptide Stat Complete Blood Count AUTO DIFF Stat Partial Thromboplastin Time Stat Procalcitonin Stat Prothrombin Time INR Stat Home O2 [Evaluate for home oxygen] NOW 03/11/19 17:20 Arterial Blood Gas Stat 03/11/19 18:36 Comprehensive Metabolic Panel Stat Lipase Stat Troponin I Stat Sodium Chloride (Normal Saline 0.9%) 1,000 mls @ 100 mls/hr IV CONT ARAVIND Last Admin: 03/11/19 19:19 Dose: Not Given Documented by: ESTEBAN Discontinued Medications Sodium Chloride (Normal Saline 0.9%) 1,000 mls @ 750 mls/hr IV BOLUS ONE Stop: 03/11/19 19:55 Last Infusion: 03/11/19 19:14 Dose: 750 mls/hr Documented by: Admin: 03/11/19 17:35 Dose: 750 mls/hr Documented by: ESTEBAN Vital Signs Vital signs: Vital Signs - 8 hr 03/11/19 17:00 03/11/19 17:06 03/11/19 17:09 Temperature 97.2 F L Pulse Rate 115 H 95 H Respiratory Rate 32 H 20 Blood Pressure 89/46 L 89/46 L Blood Pressure [Right Arm] 81/54 L Pulse Oximetry 100 100 03/11/19 17:10 03/11/19 17:15 03/11/19 17:30 Temperature Pulse Rate 96 H 97 H Respiratory Rate 22 25 H Blood Pressure 89/46 L Blood Pressure [Right Arm] 81/54 L 76/58 L Pulse Oximetry 99 97 03/11/19 17:45 03/11/19 17:49 03/11/19 17:50 Temperature Pulse Rate 97 H 86 Respiratory Rate 16 19 Blood Pressure 80/59 L Blood Pressure [Right Arm] 87/56 L 85/61 L Pulse Oximetry 96 03/11/19 18:04 03/11/19 18:12 03/11/19 18:20 Temperature Pulse Rate 112 H 99 H 99 H Respiratory Rate 24 23 21 Blood Pressure Blood Pressure [Right Arm] 82/60 L 69/52 L 83/50 L Pulse Oximetry 98 100 100 03/11/19 18:39 03/11/19 18:50 03/11/19 19:10 Temperature Pulse Rate 102 H 113 H 96 H Respiratory Rate 23 22 22 Blood Pressure Blood Pressure [Right Arm] 88/61 L 85/62 L 87/63 L Pulse Oximetry 100 97 95 03/11/19 19:30 03/11/19 19:40 03/11/19 19:51 Temperature Pulse Rate 99 H 101 H 102 H Respiratory Rate 13 14 17 Blood Pressure Blood Pressure [Right Arm] 80/58 L 81/53 L 84/70 L Pulse Oximetry 99 100 98 Medical Decision Making Lab Data Lab results reviewed: Yes I reviewed the patient's lab results. Result diagrams: 03/11/19 17:09 03/11/19 18:36 Labs: Lab Results 03/11/19 03/11/19 03/11/19 Range/Units 17:09 17:09 17:09 WBC 9.8 (4.5-11.0) X10^3/uL RBC 4.87 (4.5-5.9) X10^6/uL Hgb 15.1 (13.5-17.5) g/dL Hct 47.0 (41-53) % MCV 96.5 (80-100) fL MCH 31.1 (26-34) PG MCHC 32.2 (30-36) % RDW 17.4 H (11.6-14.8) % Plt Count 154 (150-400) X10^3/uL Neut % (Auto) 71.3 (50-75) % Lymph % (Auto) 16.3 L (25-40) % [place] % (Auto) 11.3 (3-14) % Eos % (Auto) 0.5 L (2-4) % Baso % (Auto) 0.6 (0-2) % Neut # (Auto) 7000 (8714-7764) /uL Lymph # (Auto) 1600 (9137-2067) /uL [place] # (Auto) 1100 H (0-900) /uL Eos # (Auto) 0 (0-450) /uL Baso # (Auto) 100 (0-100) /uL PT 75.4 H (10.1-12.7) SECONDS INR 6.3 H* (0.9-1.3) APTT 56 H D (26.4-36.2) SECONDS ABG pH (7.35-7.45) ABG pCO2 (35-45) mmHg ABG pO2 (80-100) mmHg ABG HCO3 (22-26) mmol/L ABG Total CO2 (21-31) mmol/L ABG O2 Saturation (95-100) % ABG Base Excess (-2-2) mmol/L FiO2 Sodium (137-145) mmol/L Potassium (3.4-5.1) mmol/L Chloride (98-107) mmol/L Carbon Dioxide (22-32) mmol/L BUN (9-20) mg/dL Creatinine (0.66-1.25) mg/dL Estimated GFR (>60) mL/min BUN/Creatinine Ratio (6-22) Glucose (80-110) mg/dL Calcium (8.4-10.2) mg/dL Total Bilirubin (0.2-1.3) mg/dL AST (17-59) IU/L ALT (21-72) IU/L Alkaline Phosphatase (38-126) U/L Troponin I (0.01-0.034) ng/mL B-Natriuretic Peptide 2180 H (<100) Total Protein (6.3-8.2) g/dL Albumin (3.5-5.0) g/dL Globulin (1.7-4.1) g/dL Albumin/Globulin Ratio (1.0-2.8) Lipase (23-300) U/L Procalcitonin 0.10 (<0.5) ng/mL 03/11/19 03/11/19 Range/Units 17:20 18:36 WBC (4.5-11.0) X10^3/uL RBC (4.5-5.9) X10^6/uL Hgb (13.5-17.5) g/dL Hct (41-53) % MCV (80-100) fL MCH (26-34) PG MCHC (30-36) % RDW (11.6-14.8) % Plt Count (150-400) X10^3/uL Neut % (Auto) (50-75) % Lymph % (Auto) (25-40) % [place] % (Auto) (3-14) % Eos % (Auto) (2-4) % Baso % (Auto) (0-2) % Neut # (Auto) (6744-8127) /uL Lymph # (Auto) (6736-1411) /uL [place] # (Auto) (0-900) /uL Eos # (Auto) (0-450) /uL Baso # (Auto) (0-100) /uL PT (10.1-12.7) SECONDS INR (0.9-1.3) APTT (26.4-36.2) SECONDS ABG pH 7.28 L* (7.35-7.45) ABG pCO2 45.7 H (35-45) mmHg ABG pO2 165 H (80-100) mmHg ABG HCO3 21 L (22-26) mmol/L ABG Total CO2 23 (21-31) mmol/L ABG O2 Saturation 99 (95-100) % ABG Base Excess -5.0 L (-2-2) mmol/L FiO2 35 Sodium 142 (137-145) mmol/L Potassium 5.4 H (3.4-5.1) mmol/L Chloride 98 (98-107) mmol/L Carbon Dioxide 19 L (22-32) mmol/L BUN 50 H (9-20) mg/dL Creatinine 7.50 H* (0.66-1.25) mg/dL Estimated GFR 7.0 L (>60) mL/min BUN/Creatinine Ratio 6.7 (6-22) Glucose 106 (80-110) mg/dL Calcium 9.7 (8.4-10.2) mg/dL Total Bilirubin 1.2 (0.2-1.3) mg/dL AST 93 H (17-59) IU/L ALT 54 (21-72) IU/L Alkaline Phosphatase 82 (38-126) U/L Troponin I 0.395 H* (0.01-0.034) ng/mL B-Natriuretic Peptide (<100) Total Protein 7.2 (6.3-8.2) g/dL Albumin 4.1 (3.5-5.0) g/dL Globulin 3.1 (1.7-4.1) g/dL Albumin/Globulin Ratio 1.3 (1.0-2.8) Lipase 118 (23-300) U/L Procalcitonin (<0.5) ng/mL Imaging Data Chest x-ray: Radiologist's impression: [address] [address] XRay Report Signed Patient: Corey Mortensen EMR#: [id number] : 5Acct:[id number] Age/Sex: 84 / MDate of Service: 03/11/19 Loc: ED Accession Number: [id number] Procedure: XR chest 1V Ordering Provider: Dipesh Turpin D.O. PROCEDURE: XR CHEST 1V INDICATIONS: CHF with shortness of breath TECHNIQUE: One view of the chest was acquired. COMPARISON: [facility], , XR CHEST 1V, 01/16/2019, 18:51. FINDINGS: Surgical changes and devices: None. Lungs and pleura: There is a moderate-sized opacity identified at the left lung base that partially obscure the diaphragm and bones the left costophrenic angle. Linear increased markings are evident at the right lung base. Mediastinum: Mediastinal contours appear normal. The heart is partially obscured and not adequately evaluated regarding its size. There is aortic atherosclerosis. Bones and chest wall: No suspicious bony lesions. Overlying soft tissues appear unremarkable. IMPRESSION: Small to moderate-sized left-sided pleural effusion with associated atelectasis. Please correlate clinically to exclude the possibility of superimposed pneumonia. No convincing overt heart failure. Dictated by: Conner Villanueva M.D. on 03/11/2019 at 16:32 Approved by: Conner Villanueva M.D. on 03/11/2019 at 16:34 ECG Data Attestation: I personally reviewed and interpreted this ECG as follows: Prior ECG tracings: not available for review Interpretation: Atrial fibrillation Ventricular rate of 97 Normal axis Right bundle branch block Normal QTC ST depression V4 V5 V6 without elevations MDM Narrative Medical decision making narrative: Patient arrived in respiratory distress on the CPAP from EMS. He was switched to our emergency BiPAP. His oxygen saturations have maintained above 90% since then. He states that he feels much better on the BiPAP. He is alert and oriented x3. He was hypotensive upon arrival. This did improve with small aliquots of fluid bolusing. Map was in the low 60s. Patient is alert and oriented. He is mentating fine. Denies any chest pain. He states that he feels better now being on the BiPAP then he has in weeks. Given his mentation in the way he is feeling I did not feel the need to start the patient on IV blood pressure medications. In general his heart rate has been less than 100. He is in atrial fibrillation. Occasionally gets above 100. He is elevated on his Coumadin however has no signs of bleeding. EKG has ST depressions laterally and his troponin is elevated. No signs of ST-elevation [place]. He is not having any chest pain. Kidney function is at baseline. Do suspicion that his symptoms are cardiac related not infectious related. Discussed the case with Dr. Hdz with the ICU at [facility] who accepts the patient. Patient was informed of the need to transfer. He expressed understanding and agreement. Patient is stable for transfer. Critical Care Time Critical Care Time Critical Care Time: Yes Total Critical Care Time: 45 Attestation: The high probability of a clinically significant, sudden or life threatening deterioration of the cardiac and respiratory system(s) required my full and direct attention, intervention and personal management. The aggregate critical care time was 45 minutes. This time is in addition to time spent performing reported procedures but includes the following: [] Data Review and interpretation [] Patient assessment and monitoring of vital signs [] Documentation [] Medication orders and management Discharge Plan Departure Patient Disposition: [facility] Clinical Impression: End stage renal disease on dialysis, Acute respiratory distress, Non-ST elevation [place] (NSTEMI) CHF (congestive heart failure) Qualifiers: Heart failure type: unspecified Heart failure chronicity: unspecified Qualified Code(s): I50.9 - Heart failure, unspecified Hypotension Qualifiers: Hypotension type: unspecified hypotension type Qualified Code(s): I95.9 - Hypotension, unspecified Prescriptions: No Action Novolog U-100 Insulin aspart 100 unit/mL solution See Rx Instructions subcut SLIDE RF: 0 aspirin [Adult Low Dose Aspirin] 81 mg tablet,delayed release (DR/EC) 81 mg PO DAILY RF: 0 vitamin B complex [B Complex-Vitamin B12] tablet 1 tab PO DAILY RF: 0 cholecalciferol (vitamin D3) [Vitamin D3] 2,000 unit Capsule 2,000 unit PO DAILY Qty: 0 RF: 0 calcium acetate 667 MG capsule 2 tab PO WITH MEALS Qty: 180 RF: 3 clotrimazole-betamethasone [Lotrisone] 15 GM cream 1 caitlyn Topical BID Qty: 30 RF: 0 (DME) [LANCETS] 0 .Route .MEDSUPPLY Qty: 100 RF: 3 warfarin [Coumadin] 4 mg tablet 4 mg PO DAILY Qty: 90 RF: 1 metoprolol tartrate 25 mg tablet 25 mg PO BID Qty: 60 RF: 1 Alcohol Prep Pads 1 pad topical DIRECTED RF: 0 atorvastatin [Lipitor] 40 MG tablet 40 mg PO BEDTIME RF: 0 Pita-Rene 0.8 mg Tablet 1 tab PO DAILY RF: 0 levothyroxine 112 mcg Tablet 224 mcg PO DAILY RF: 0 nitroglycerin [Nitrostat] 0.4 MG tablet, sublingual 0.4 mg Sublingual SEE INSTRUCTIONS PRN (Reason: Chest Pain) RF: 0 omeprazole 20 MG capsule,delayed release(DR/EC) 20 mg PO DAILY RF: 0 Prevalite 4 GM powder in packet 4 gm PO Q6HP PRN (Reason: Diarrhea) RF: 0 [place] 1 ea miscellaneous DIRECTED RF: 0 Referrals: Arabella Garvin DO [Primary Care Provider] -
--- NOTE | 2019-03-11 17:14 | PC.NURSE ---
Timi, Primary RN. Pt arrived via EMS on Bipap. Resp Distress in field and found hunched over and drooling with sats 70s% RA. AAOx3, Lungs clear, dialysis pt and last tx yesterday with L fistula. L tibial IO with pressure NS fluids. BP 80's systolic. HR 115 on arrival. currently 95-105bpm. h/o afib and takes blood thinners. EKG obtained. 2nd IV placed in R hand and labs drawn. on cardiac monitoring. Dr Turpin at bedside. Trauma and crash cart at side, intubation kit at bedside. RT in for ABG.
[2019-03-11] MEDS: SODIUM CHLORIDE 0.9% 1,000 ML 750 ML IV (17:35)
[2019-03-11 17:45] LABS: Add Manual Diff / Slide Review NO; Basophils Absolute Auto 100 /uL (0-100); Basophils Percent Auto 0.6 % (0-2); Eosinophils Absolute Auto 0 /uL (0-450); Eosinophils Percent Auto 0.5 % (2-4); Hemoglobin 15.1 g/dL (13.5-17.5); Lymphocytes Absolute Auto 1600 /uL (1100-4500); Lymphocytes Percent Auto 16.3 % (25-40); Mean Corpuscular HGB Conc 32.2 % (30-36); Mean Corpuscular Hemoglobin 31.1 PG (26-34); Mean Corpuscular Volume 96.5 fL (80-100); Monocytes Absolute Auto 1100 /uL (0-900); Monocytes Percent Auto 11.3 % (3-14); Neutrophils Absolute Auto 7000 /uL (1500-7000); Neutrophils Percent Auto 71.3 % (50-75); Platelet Count 154 X10^3/uL (150-400); Red Blood Cell Count 4.87 X10^6/uL (4.5-5.9); Red Cell Distribution Width 17.4 % (11.6-14.8); White Blood Cell Count 9.8 X10^3/uL (4.5-11.0)
[2019-03-11 17:46] LABS: Fractionated Inspired Oxygen 35; HCO3 ABG 21 mmol/L (22-26); Oxygen Saturation ABG 99 % (95-100); PCO2 ABG 45.7 mmHg (35-45); PO2 ABG 165 mmHg (80-100); TCO2 ABG 23 mmol/L (21-31); pH ABG 7.28 (7.35-7.45)
[2019-03-11 17:48] LABS: PTT Partial Thromboplastin Tim 56 SECONDS (26.4-36.2)
[2019-03-11 18:04] LABS: Prothrombin Time 75.4 SECONDS (10.1-12.7)
[2019-03-11 18:07] LABS: INR 6.3 (0.9-1.3)
[2019-03-11 18:08] LABS: B Type Natriuretic Peptide 2180 (<100)
[2019-03-11 19:19] LABS: Alanine Aminotransferase 54 IU/L (21-72); Albumin 4.1 g/dL (3.5-5.0); Albumin Globulin Ratio 1.3 (1.0-2.8); Alkaline Phosphatase 82 U/L (38-126); Aspartate Aminotransferase 93 IU/L (17-59); BUN Creatinine Ratio 6.7 (6-22); Bilirubin Total 1.2 mg/dL (0.2-1.3); Blood Urea Nitrogen 50 mg/dL (9-20); Calcium 9.7 mg/dL (8.4-10.2); Carbon Dioxide 19 mmol/L (22-32); Chloride 98 mmol/L (98-107); Globulin 3.1 g/dL (1.7-4.1); Glucose 106 mg/dL (80-110); HEMOLYSIS 27 (0-50); Lipase 118 U/L (23-300); Sodium 142 mmol/L (137-145); Total Protein 7.2 g/dL (6.3-8.2)
[2019-03-11 19:32] LABS: Potassium 5.4 mmol/L (3.4-5.1)
[2019-03-11 19:35] LABS: Troponin I 0.395 ng/mL (0.01-0.034)
--- NOTE | 2019-03-11 19:50 | PC.NURSE ---
[place] at bedside contact phone number [phone].
== END 2019-03-11 21:55 | disposition short-term general hospital (02) ==
PROVIDERS: Emergency Provider Emergency Medicine; Family Provider Specialist; PCP Family Medicine
DX: N18.6 End stage renal disease (principal); R06.03 Acute respiratory distress; I21.4 Non-ST elevation (NSTEMI) myocardial infarction; I50.9 Heart failure, unspecified; I95.9 Hypotension, unspecified
CPT/HCPCS: 36415; 36600; 71045; 80053; 82805; 83690; 83880; 84145; 84484; 85025; 85610; 85730; 93005; 93010; 93041; 96360; 96361; 99285; 99291; 99292